=== PATIENT | male | born 1970 | race Two or more races ===

== ENCOUNTER → 2019-02-07 | Emergency (ER) | payer SELFPAY ==
[~2019-02-07] VITALS: Ht 177.8 cm; Wt 53.5 kg
[~2019-02-07] MED LIST: ACETAMINOPHEN325 M1 ORAL; Tylenol #3 tab (300mg/30mg) ORAL ONE; XANAX0.25 MG ORAL; ZYPREXA2.5 MG ORAL
--- NOTE | 2019-02-07 18:20 | NUR ---
ED Nurse Note: pt denies being homeless
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
[2019-02-07 18:59] VITALS: BP 133/88
== END | disposition home or self-care (01) ==
LOC: EDBD 18:15 → EMR 20:05
DX: R51 Headache (principal); F20.9 Schizophrenia, unspecified
CPT/HCPCS: 99282